=== PATIENT | female | born 1990 | race Caucasian/White ===

== ENCOUNTER → 2019-04-30 08:42 | Outpatient (BNVA) | payer SELFPAY | PROVIDERS: PCP Nurse Practitioner Women's Health; Visit Provider Nurse Practitioner Women's Health | DX: O99.013 Anemia complicating pregnancy, third trimester (principal); Z3A.32 32 weeks gestation of pregnancy; O28.3 Abnormal ultrasonic finding on antenatal screening of mother | CPT/HCPCS: 81000 ==

== ENCOUNTER → 2019-05-14 10:51 | Outpatient (BNVA) | payer MEDICAID, SELFPAY | PROVIDERS: Visit Provider Obstetrics & Gynecology | DX: Z34.90 Encounter for supervision of normal pregnancy, unspecified, unspecified trimester (principal) | CPT/HCPCS: 81003 ==

== ENCOUNTER → 2019-05-28 10:07 | Outpatient (BNVA) | payer MEDICAID, SELFPAY | PROVIDERS: Visit Provider Nurse Practitioner Women's Health | DX: O99.013 Anemia complicating pregnancy, third trimester (principal); Z3A.00 Weeks of gestation of pregnancy not specified | CPT/HCPCS: 81000; 84315; 85027; 87081 ==

== ENCOUNTER → 2019-06-05 08:20 | Outpatient (BNVA) | payer MEDICAID, SELFPAY | PROVIDERS: PCP Nurse Practitioner Women's Health; Visit Provider Obstetrics & Gynecology Female Pelvic Medicine and Reconstructive Surgery | DX: Z34.90 Encounter for supervision of normal pregnancy, unspecified, unspecified trimester (principal) | CPT/HCPCS: 81003 ==

== ENCOUNTER → 2019-06-10 12:52 | Outpatient (BNVA) | payer MEDICAID, SELFPAY | PROVIDERS: PCP Nurse Practitioner Women's Health; Visit Provider Obstetrics & Gynecology Female Pelvic Medicine and Reconstructive Surgery | DX: Z34.90 Encounter for supervision of normal pregnancy, unspecified, unspecified trimester (principal) | CPT/HCPCS: 81003 ==

== ENCOUNTER 2019-06-17 00:15 | Outpatient (CLI) | payer MEDICAID, SELFPAY ==
[2019-06-17] VITALS (15 sets, daily range): BP systolic 0–134; BP diastolic 0–78; PULSE 77–112; RESP 16–18; TEMP 36.9–37.1; BMI 29.0
--- NOTE | 2019-06-17 07:42 | PM.SDS ---
Short Stay Summary Providers Date of Admit/Discharge: 06/17/19 Attending Provider: Fermin Scales MD Primary Care Provider: KRANTHI Michaud Chief Complaint: contractions HPI History of Present Illness Stefanie Hawkins is a 29 year old female 2, para 1-0-0-1 with an LMP of 09/15/2018 and an EDC of 06/22/2019, which places her at 39-2/7 weeks gestation. She presented to L&D with complaint of contractions which had started about 1800 on 06/16. She states they had slowly increased in intensity before she came in. She denies leaking of fluid, vaginal bleeding. Reports good movement. Review of Systems Const: Denies: fever or chills ENMT: Denies: throat pain or nasal congestion Card: Denies: chest pain, palpitations or lightheadedness Resp: Denies: shortness of breath, productive cough, non-productive cough or wheezing GI: Denies: nausea, vomiting or diarrhea : Reports: urinary frequency; Denies: painful urination, genital itching, vaginal bleeding or vaginal discharge Neuro: Denies: headache, dizziness or seizure-like activity Home Meds/Allergies Home Medications and Allergies Home Medications Medication Instructions Recorded Confirmed Type PNV no.[id number] 2 tab PO DAILY 05/14/19 06/17/19 History [ Gummies] magnesium 250 mg PO BID 05/14/19 06/17/19 History pyridoxine (vitamin B6) [Vitamin 50 mg PO DAILY 05/14/19 06/17/19 History B-6] iron 325 mg PO BID 06/17/19 06/17/19 History Allergies Allergy/AdvReac Type Severity Reaction Status Date / Time Sulfa (Sulfonamide AdvReac Severe Heart stops Verified 05/14/19 09:43 Antibiotics) PFSH Acute PFSH: Medical History (Updated 06/17/19 @ 07:58 by Fermin Scales MD) Anemia affecting in third trimester Surgical History (Updated 06/17/19 @ 07:49 by Fermin Scales MD) No history of previous surgery Family History (Updated 06/17/19 @ 07:49 by Fermin Scales MD) Other Adopted Social History (Updated 06/17/19 @ 07:50 by Fermin Scales MD) Smoking and tobacco status: never smoked Alcohol intake: current Alcohol use comment: Social alcohol use, but not during Substance/Drug Use: never Female Reproductive History: : 2 Vitals/I&O/Wt Last Vital Signs Temp 98.7 F 06/17/19 07:03 Pulse 87 06/17/19 07:34 Resp 18 06/17/19 07:03 BP 130/73 06/17/19 07:34 Weight last 48 hrs Weight 191 lb Weight 191 lb Physical Exam Const: COMMON NORMALS: no apparent distress, average body habitus, alert and well nourished GENERAL APPEARANCE: well developed ORIENTATION/CONSCIOUSNESS: Yes oriented to person, Yes oriented to place and Yes oriented to time GI: COMMON NORMALS: soft to palpation, non-tender, no hepatosplenomegaly and no masses (except for nontender gravid uterus) AUSCULTATION: Yes normoactive bowel sounds PALPATION: Yes soft, Yes no hepatosplenomegaly and No hernia : EXTERNAL FEMALE EXAM: No hernia OTHER: External genitalia: Normal in appearance with no lesions seen. Anus/perineum: No perineal lesions noted. Urethral meatus: Normal in size and location with no lesions or prolapse noted. Urethra: Nontender with no palpable masses noted. Bladder: Nontender with no palpable masses noted. Vagina: No palpable masses. Brownish discharge present. Cervix: 3-4 cm dilated, 75% effaced, -2 station, soft, mid-position. Uterus: Gravid, non-tender. Adnexa: Neither ovary palpable. Neuro: SENSORIUM/ORIENTATION: Yes alert, Yes oriented to person, Yes oriented to place and Yes oriented to time Psych: COMMON NORMALS: affect normal MOOD & AFFECT: Yes euthymic mood Skin: COMMON NORMALS: no rashes or lesions noted GENERAL SKIN EXAM: no rashes or lesions noted Hospital Course Hospital Course: Patient was checked in L&D on admission by the nurse and reported to be 70% effaced and 3 cm dilated at 00:25. She was darius every 2-4 mutes. She was re-assessed at 02:25 and was reported by nurse to be 75% effaced and 4 cm dilated by a different nurse. Because of the possible change, she was kept during the night. This morning at my evaluation, she was 75% effaced and 3-4 cm dilated. She is still darius mildly every 2-4 minutes. Since she has not made any significant cervical change since admission, approx 7 hours ago, I am discharging her to home. She was instructed to come back in for evaluation if contractions became stronger, her water broke, or if developed bleeding. She was instructed to keep her next scheduled appointment in the office on SSS Data Procedures Performed: Monitoring: Category 1 tracing. Normal heart rate, moderate variability, accelerations present, no decelerations. Reactive tracing. Contractions every 2-4 minutes. Diagnoses at Discharge Discharge Diagnosis (1) False labor after 37 completed weeks of gestation: Status: Acute Discharge Plan Discharge Patient Disposition: Home, Self-Care Prescriptions: Continued iron 325 mg (65 mg iron) Tablet 325 mg PO BID RF: 0 magnesium 250 mg Tablet 250 mg PO BID RF: 0 Vitamin B-6 50 mg Capsule 50 mg PO DAILY RF: 0 Gummies 400 mcg-35 mg- 25 mg-5 mg Tablet,Chewable 2 tab PO DAILY RF: 0 Discharge Orders: Discharge Order (Routine); Ordered 06/17/19 Ordered By: Fermin Scales Referrals: Fermin Scales MD [Physician] - (Keep next scheduled appointment in the office later this week) Diet: Regular Activity: Resume usual activity Patient Instructions: OB Undelivered Discharge Activity Restrictions/Additional Instructions: Keep regular scheduled appt, follow up sooner if needed. Return for regular painful contractions 5min and less. Bright red vaginal bleeding, leaking fluid like your water is broke or baby is not moving. Attestations Medical Necessity Statement*: Patient was monitored due to frequent contractions and possible labor Time Spent in Patient Care*: less than 30 min Quality Metrics Clinical Quality Measures: During this hospital stay, did patient experience: None Coding Level of Care Code Acute Roll Up Operator for Chg Fwd Diagnoses False labor after 37 completed weeks of gestation O47.1
== END 2019-06-17 07:40 | disposition home or self-care (01) ==
LOC: OPOB 00:23 → OBGYN 07:42 → OPOB 06-18 08:44
PROVIDERS: PCP Nurse Practitioner Women's Health; Visit Provider Obstetrics & Gynecology
DX: O26.899 Other specified pregnancy related conditions, unspecified trimester (principal); Z3A.00 Weeks of gestation of pregnancy not specified; R10.9 Unspecified abdominal pain
CPT/HCPCS: 59025; 99211

== ENCOUNTER 2019-06-21 16:58 | Inpatient (IN) | payer MEDICAID, SELFPAY ==
[2019-06-21] VITALS (56 sets, daily range): BP systolic 0–172; BP diastolic 0–107; PULSE 72–125; RESP 16–18; TEMP 36.5–37.1; O2SAT 98–100; BMI 29.0
[2019-06-21 09:43] LABS: Basophils % 0.2 %; Eosinophils # 0.1 10^3/uL (0.0-0.8); Eosinophils % 0.8 %; Hematocrit 31.7 % (37.0-47.0); Hemoglobin 10.3 g/dL (11.5-15.3); Lymphocytes # 1.5 10^3/uL (0.8-4.8); Lymphocytes % 16.2 %; Mean Corpuscular HGB Conc 32.5 g/dL (30.0-36.0); Mean Corpuscular Hemoglobin 30.5 pg (28.0-34.0); Mean Corpuscular Volume 93.8 fL (81-99); Mean Platelet Volume 10.8 fL (7.4-10.4); Monocytes # 0.7 10^3/uL (0.2-0.9); Monocytes % 7.7 %; Neutrophils # 6.7 10^3/uL (1.8-7.7); Nucleated Red Blood Cells % 0 %; Platelet Count 213 10^3/cmm (130-400); Red Blood Count 3.38 10^6/uL (4.1-5.3); White Blood Count 9.2 10^3/uL (4.0-10.0)
[2019-06-21] MEDS: miSOPROStol 100 mcg tablet 25 MCG VAGINAL (10:05)
[2019-06-21] MEDS: lactated ringers 1,000 ML 999 ML IV ×2 (14:57→15:29)
--- NOTE | 2019-06-21 16:46 | PM.OBGYHP ---
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 complicated by anemia otherwise unremarkable Present Details : 2 Para: 1 Labs Rubella: Immune RPR: Negative GBS: Negative Review of Systems Const: Denies: fever, chills, body aches, change in appetite or fatigue Eyes: Denies: change in vision ENMT: Denies: painful swallowing Card: Denies: chest pain, palpitations or irregular heart rhythm Resp: Denies: shortness of breath, productive cough or non-productive cough GI: Denies: abdominal pain, nausea, vomiting, difficulty swallowing or painful bowel movements : Denies: difficulty urinating, painful urination, urinary frequency or urinary urgency Musc: Denies: back pain, extremity pain or extremity swelling Skin/Breast: Denies: rash Neuro: Denies: headache, numbness in extremities or weakness in extremities Psych: Denies: anxiety or depression Endo: Denies: cold intolerance, excessive sweating or heat intolerance [place]/Lymph: Denies: easy bruising or easy bleeding All/Imm: Denies: hives Medications/Allergies Allergies Allergy/AdvReac Type Severity Reaction Status Date / Time Sulfa (Sulfonamide AdvReac Severe Heart stops Verified 05/14/19 09:43 Antibiotics) [facility] FUR PLUCKER Medical History Anemia affecting in third trimester Surgical History No history of previous surgery Family History Other Adopted Social History Smoking and tobacco status: never smoked Alcohol intake: current Vitals/I&O/Wt Last Vital Signs Temp 98.8 F 06/21/19 14:10 Pulse 107 H 06/21/19 16:41 BP 123/58 06/21/19 16:41 Pulse Ox 100 06/21/19 16:05 Weight last 48 hrs Weight 86.827 kg Physical Exam Narrative: EXAM NARRATIVE: Alert and oriented no acute distress pleasant white female gravid appears term Skin without rashes HEENT grossly normal Neck supple nontender nodes no masses Lungs clear Heart regular sinus rhythm Abdomen gravid soft nontender vertex by Ming's estimated weight 7/2 pounds. Cervix 80% 3 cm vertex mid to posterior soft -2 pelvis clinically adequate Extremities grossly intact no significant edema Neuro shows normal gait patella DTR 05/28 Data : 06/21/19 09:15 A&P Additional A&P Information Term IUP Admit for induction of labor patient has been counseled for same we utilize misoprostol 25 mcg followed by reevaluation 4 hours with possible amniotomy versus repeat misoprostol. Anemia in , mild We will watch blood loss closely avoid hemorrhage Attestations Medical Necessity Statement*: Admit for delivery suspect Time Spent in Patient Care: 16 - 35 minutes (>than 50% of time spent in counselling and/or direct pt care on unit). Coding Level of Care Code Acute Handhole Machine Operator for Javier Cassidy
--- NOTE | 2019-06-21 16:50 | PM.DELIVERY ---
 Delivery Note: Date of delivery: June 21, 2019 Pre-delivery diagnoses: Term IUP, uncomplicated Mild anemia Post-delivery diagnoses: Same Plus nuchal cord with body cord x1 Procedure: Spontaneous vaginal delivery Repair of second-degree perineal laceration and right labial laceration Delivery note: Call from office when patient was 8 cm dilated category 1 tracing. Presented to labor and delivery upon my arrival and check she was feeling pushy and complete and complete. She then was allowed to push and had moderate variables in the second stage second stage was reasonably short productive of the spontaneous vaginal delivery of viable male . Head was delivered occiput anterior nuchal cord x1 was reduced anterior shoulder, left easily delivered to baby delivered without incident and laid on mom's abdomen. Has the body was delivering it was noted to be a posterior shoulder cord also. was laid on mom's abdomen delayed cord clamping of 1 minute. Cord was then clamped and cut mom did receive IV Pitocin with delivery the baby had good uterine contractility cord bloods were obtained placenta delivered spontaneously complete three-vessel inspection of vagina cervix showed no laceration second-degree perineal laceration repaired with 3-0 Vicryl in standard fashion 3 cm right labial laceration repaired with 3-0 Vicryl in running fashion. There were no complications. Baby in room with parents for rooming in mom will go to the floor in good condition. Op report anesthesia: Epidural Delivering Physician: Go Peace DO Estimated blood loss (mL): 250 Findings: Viable male Apgars 8 and 9 Pre-Delivery Course: Patient was admitted at 2 to 3 cm had measle possible 25 mcg placed 4 hours later she was 4 cm underwent amniotomy progressed nicely into full labor with no further augmentation required category 1 tracing. Short second stage Delivery: Delivery note: Call from office when patient was 8 cm dilated category 1 tracing. Presented to labor and delivery upon my arrival and check she was feeling pushy and complete and complete. She then was allowed to push and had moderate variables in the second stage second stage was reasonably short productive of the spontaneous vaginal delivery of viable male infant. Head was delivered occiput anterior nuchal cord x1 was reduced anterior shoulder, left easily delivered to baby delivered without incident and laid on mom's abdomen. Has the body was delivering it was noted to be a posterior shoulder cord also. Infant was laid on mom's abdomen delayed cord clamping of 1 minute. Cord was then clamped and cut mom did receive IV Pitocin with delivery the baby had good uterine contractility cord bloods were obtained placenta delivered spontaneously complete three-vessel inspection of vagina cervix showed no laceration second-degree perineal laceration repaired with 3-0 Vicryl in standard fashion 3 cm right labial laceration repaired with 3-0 Vicryl in running fashion. There were no complications. Baby in room with parents for rooming in mom will go to the floor in good condition Post-Delivery Status: good condition A&P Additional A&P Information Term IUP delivered Coding Level of Care Code Acute Insurance Administrative Assistant for Chg Fwd Time Spent (min) 35
--- NOTE | 2019-06-21 17:34 | PC.NURSE ---
PT HAS EPIDURAL AND IS ALITTLE MORE COMFORTABLE BUT STILL FEELING PUSHY.
[2019-06-21] MEDS: benzocaine-menthol 78 gm Canister 1 SPRAY TOPICAL (20:32)
[2019-06-21] MEDS: lanolin oint 7 gm 1 APPLIC TOPICAL (20:34)
[2019-06-22 02:00] VITALS: BP 112/76; PULSE 78; RESP 16; TEMP 36.7
[2019-06-22 05:25] LABS: Hematocrit 31.2 % (37.0-47.0); Hemoglobin 9.6 g/dL (11.5-15.3); Mean Corpuscular HGB Conc 30.8 g/dL (30.0-36.0); Mean Corpuscular Volume 97.5 fL (81-99); Mean Platelet Volume 10.8 fL (7.4-10.4); Platelet Count 175 10^3/cmm (130-400); Red Cell Distribution Width 15.1 % (12.1-15.1); White Blood Count 11.7 10^3/uL (4.0-10.0)
--- NOTE | 2019-06-22 06:36 | P.DS_ITS ---
Discharge Providers SOLUTIONS EXECUTIVE SECURITY Date of Admission: 06/21/19 16:58 Date of Discharge: 06/22/19 Attending Provider at Admission: Go Peace DO Attending Provider at Discharge: Go Peace DO Primary Care Provider: KRANTHI Michaud Reason for Visit Reason for Visit: Reason For Visit: Induction Hospital Course Hospital Course: Patient admitted at 39 weeks for elective induction of labor had favorable cervix. Underwent misoprostol 25 mcg per vagina with good uterine contractions category 1 tracing amniotomy performed at 4 cm patient progressed very nicely through labor had spontaneous vaginal delivery of viable infant. course benign up and about breast-feeding well baby doing well no complaints discharged home day 1. Discharge Summary: See above: Patient did well was discharged home with plan follow-up in 2 weeks spouse is to get a vasectomy. Information Peripartum Data: Delivery Method: Vaginal Physical Exam Narrative: EXAM NARRATIVE: Alert and oriented no acute distress HEENT grossly normal Abdomen soft nontender uterus U- 2 firm Vagina minimal bleeding Perineum well approximated Extremities grossly intact no calf tenderness Discharge Data Data Completed and Pending: Pending at discharge Category Date Time Status Antibody Identifi cation Stat Lab 06/21/19 17:54 Ordered Complete Crossmat ch Routine Lab 06/21/19 09:15 Results Rho D Immune Glob ulin Routine Lab 06/21/19 09:15 Results Type and Screen R outine Lab 06/21/19 09:15 Results Labs from last 24 hours 06/22/19 06/21/19 05:20 09:15 WBC 11.7 H 9.2 RBC 3.20 L 3.38 L Hgb 9.6 L 10.3 L Hct 31.2 L 31.7 L MCV 97.5 93.8 MCH 30.0 30.5 MCHC 30.8 D 32.5 RDW 15.1 15.0 Plt Count 175 213 MPV 10.8 H 10.8 H Neut % (Auto) 73.0 Lymph % (Auto) 16.2 [place] % (Auto) 7.7 Eos % (Auto) 0.8 Baso % (Auto) 0.2 Neut # (Auto) 6.7 Lymph # (Auto) 1.5 [place] # (Auto) 0.7 Eos # (Auto) 0.1 Baso # (Auto) 0.0 Nucleated RBC % (a uto) 0 Nucleated RBCs # 0.0 Vitals: Last Vital Signs Temp 98.0 F 06/22/19 02:00 Pulse 78 06/22/19 02:00 Resp 16 06/22/19 02:00 BP 112/76 06/22/19 02:00 Pulse Ox 100 06/21/19 16:05 Discharge Plan Discharge Patient Disposition: Home, Self-Care Condition: Stable Prescriptions: New acetaminophen 325 mg Tablet 650 mg PO Q6H PRN (Reason: Mild pain or temp > 100.4) 30 Days Qty: 90 RF: 0 Continued ferrous sulfate [iron] 325 mg (65 mg iron) Tablet 325 mg PO BID RF: 0 magnesium 250 mg Tablet 250 mg PO BID RF: 0 Vitamin B-6 50 mg Capsule 50 mg PO DAILY RF: 0 Gummies 400 mcg-35 mg- 25 mg-5 mg Tablet,Chewable 2 tab PO DAILY RF: 0 Discharge Orders: Discharge Order (Routine); Ordered 06/22/19 Ordered By: Go Peace Referrals: Go Peace DO [Physician] - 2 weeks Discharge Diet: Regular Discharge Activity: Increase activity as tolerated Discharge Attestations SOLUTIONS EXECUTIVE SECURITY Time Spent in Discharge Care*: less than 30 min Coding Level of Care Code Acute Metal Melter for Chg Ange
--- NOTE | 2019-06-22 06:46 | PM.OBGYPN ---
ASSOCIATE PROFESSOR OF THEOLOGY Subjective Subjective: Interval history: day 1 doing well ready to go home Labor: Station: +2 Amniotic Membrane Status: Ruptured Monitor Mode: External Contraction Pattern: Regular Status: Category l Vitals/I&O/Wt Last Vital Signs Temp 98.0 F 06/22/19 02:00 Pulse 78 06/22/19 02:00 Resp 16 06/22/19 02:00 BP 112/76 06/22/19 02:00 Pulse Ox 100 06/21/19 16:05 06/21/19 06/21/19 06/22/19 14:59 22:59 06:59 Intake Total 1200 / 1200 Output Total 900 / 900 Balance 300 / 300 Weight last 48 hrs Weight 86.827 kg Physical Exam Narrative: EXAM NARRATIVE: Alert and oriented no acute distress sitting up in bed HEENT normal Abdomen soft nontender uterus U- 2 firm tender. EXT/BUS perineum well approximated Vagina no significant bleeding Extremities grossly intact no swelling no calf tenderness Data : 06/22/19 05:20 A&P Additional A&P Information Term IUP delivered Doing well discharge home Anemia Anemia stable continue FeSO4 Attestations Medical Necessity Statement*: care Time Spent in Patient Care: 16 - 35 minutes (>than 50% of time spent in counselling and/or direct pt care on unit). Coding Level of Care Code Acute Inspector Air Carrier for Javier Cassidy
[2019-06-22 07:09] VITALS: BP 118/73; PULSE 90; RESP 18; TEMP 36.6
[2019-06-22] MEDS: ferrous sulfate EC 325 mg Tablet PO (08:50)
[2019-06-22] MEDS: docusate sodium 100 mg Capsule PO (08:50)
[2019-06-22 10:38] VITALS: BP 101/63; PULSE 92; RESP 18; TEMP 36.8
[2019-06-22 16:45] VITALS: BP 116/71; PULSE 71; RESP 16; TEMP 36.8
== END 2019-06-22 17:45 | disposition home or self-care (01) | DRG 807 ==
LOC: OBGYN 06-22 06:40 → OPOB 06-24 07:55
PROVIDERS: Admitting Provider Obstetrics & Gynecology Female Pelvic Medicine and Reconstructive Surgery; PCP Nurse Practitioner Women's Health; Visit Provider Obstetrics & Gynecology Female Pelvic Medicine and Reconstructive Surgery
DX: O99.02 Anemia complicating childbirth (principal); Z37.0 Single live birth; D64.9 Anemia, unspecified; Z3A.39 39 weeks gestation of pregnancy; O69.81X0 Labor and delivery complicated by cord around neck, without compression, not applicable or unspecified; O70.1 Second degree perineal laceration during delivery
CPT/HCPCS: 12345; 36415; 59025; 59409; 85025; 85027; 86850; 86900; 99211; J2795

== ENCOUNTER → 2019-08-05 11:38 | Outpatient (BNVA) | payer MEDICAID, SELFPAY | PROVIDERS: PCP Nurse Practitioner Women's Health; Visit Provider Obstetrics & Gynecology | DX: Z30.013 Encounter for initial prescription of injectable contraceptive (principal); Z30.42 Encounter for surveillance of injectable contraceptive; Z39.2 Encounter for routine postpartum follow-up | CPT/HCPCS: 81025 ==

== ENCOUNTER → 2020-06-12 09:36 | Outpatient (BNVA) | payer BC, MEDICAID, SELFPAY | PROVIDERS: PCP Nurse Practitioner Women's Health; Visit Provider Obstetrics & Gynecology | DX: Z32.00 Encounter for pregnancy test, result unknown (principal) | CPT/HCPCS: 81025 ==

== ENCOUNTER → 2020-07-02 09:02 | Outpatient (BNVA) | payer BC, MEDICAID, SELFPAY | PROVIDERS: PCP Nurse Practitioner Women's Health; Visit Provider Nurse Practitioner Women's Health | DX: O36.80X0 Pregnancy with inconclusive fetal viability, not applicable or unspecified (principal); Z3A.00 Weeks of gestation of pregnancy not specified | CPT/HCPCS: 81000 ==

== ENCOUNTER → 2020-07-15 08:54 | Outpatient (BNVA) | payer BC, MEDICAID, SELFPAY | PROVIDERS: PCP Nurse Practitioner Women's Health; Visit Provider Obstetrics & Gynecology | DX: Z34.90 Encounter for supervision of normal pregnancy, unspecified, unspecified trimester (principal); Z34.80 Encounter for supervision of other normal pregnancy, unspecified trimester; Z30.2 Encounter for sterilization | CPT/HCPCS: 81000 ==

== ENCOUNTER → 2020-07-20 13:15 | Outpatient (BNVA) | payer BC, MEDICAID, SELFPAY | PROVIDERS: PCP Nurse Practitioner Women's Health; Visit Provider Obstetrics & Gynecology | DX: Z34.80 Encounter for supervision of other normal pregnancy, unspecified trimester (principal) | CPT/HCPCS: 85027; 86592; 86762; 86803; 86850; 86900; 87340; 87806 ==

== ENCOUNTER → 2020-08-05 10:10 | Outpatient (BNVA) | payer BC, MEDICAID, SELFPAY | PROVIDERS: PCP Nurse Practitioner Women's Health; Visit Provider Obstetrics & Gynecology | DX: Z34.80 Encounter for supervision of other normal pregnancy, unspecified trimester (principal); Z30.2 Encounter for sterilization | CPT/HCPCS: 80307; 81000; 87086; 87491; 87591 ==

== ENCOUNTER → 2020-09-03 08:17 | Outpatient (BNVA) | payer BC, MEDICAID, SELFPAY | PROVIDERS: PCP Nurse Practitioner Women's Health; Visit Provider Nurse Practitioner Women's Health | DX: Z34.80 Encounter for supervision of other normal pregnancy, unspecified trimester (principal); R31.9 Hematuria, unspecified; Z30.2 Encounter for sterilization | CPT/HCPCS: 81000; 87086 ==

== ENCOUNTER → 2020-09-30 12:35 | Outpatient (BNVA) | payer BC, MEDICAID, SELFPAY | PROVIDERS: PCP Nurse Practitioner Women's Health; Visit Provider Obstetrics & Gynecology | DX: Z34.80 Encounter for supervision of other normal pregnancy, unspecified trimester (principal) | CPT/HCPCS: 81000 ==

== ENCOUNTER → 2020-10-27 10:46 | Outpatient (BNVA) | payer BC, MEDICAID, SELFPAY | PROVIDERS: PCP Nurse Practitioner Women's Health; Visit Provider Nurse Practitioner Women's Health | DX: Z34.80 Encounter for supervision of other normal pregnancy, unspecified trimester (principal); Z30.2 Encounter for sterilization | CPT/HCPCS: 81000 ==

== ENCOUNTER → 2020-11-26 14:23 | Outpatient (BNVA) | payer BC, MEDICAID, SELFPAY | PROVIDERS: PCP Nurse Practitioner Women's Health; Visit Provider Obstetrics & Gynecology | DX: Z30.2 Encounter for sterilization (principal); Z34.80 Encounter for supervision of other normal pregnancy, unspecified trimester | CPT/HCPCS: 81000; 82950; 85025 ==

== ENCOUNTER → 2020-12-09 12:26 | Outpatient (BNVA) | payer BC, MEDICAID, SELFPAY | PROVIDERS: PCP Nurse Practitioner Women's Health; Visit Provider Obstetrics & Gynecology | DX: Z34.80 Encounter for supervision of other normal pregnancy, unspecified trimester (principal) | CPT/HCPCS: 81000 ==

== ENCOUNTER → 2020-12-23 10:41 | Outpatient (BNVA) | payer BC, MEDICAID, SELFPAY | PROVIDERS: PCP Nurse Practitioner Women's Health; Visit Provider Obstetrics & Gynecology | DX: Z34.80 Encounter for supervision of other normal pregnancy, unspecified trimester (principal) | CPT/HCPCS: 81000 ==

== ENCOUNTER → 2021-01-06 09:57 | Outpatient (BNVA) | payer BC, MEDICAID, SELFPAY | PROVIDERS: PCP Nurse Practitioner Women's Health; Visit Provider Nurse Practitioner Women's Health | DX: O99.013 Anemia complicating pregnancy, third trimester (principal); Z30.2 Encounter for sterilization; Z3A.00 Weeks of gestation of pregnancy not specified | CPT/HCPCS: 81000 ==

== ENCOUNTER → 2021-01-20 11:00 | Outpatient (BNVA) | payer BC, MEDICAID, SELFPAY | PROVIDERS: PCP Nurse Practitioner Women's Health; Visit Provider Obstetrics & Gynecology | DX: Z34.80 Encounter for supervision of other normal pregnancy, unspecified trimester (principal); Z34.90 Encounter for supervision of normal pregnancy, unspecified, unspecified trimester | CPT/HCPCS: 81000; 87081 ==

== ENCOUNTER → 2021-01-27 10:26 | Outpatient (BNVA) | payer BC, MEDICAID, SELFPAY | PROVIDERS: PCP Nurse Practitioner Women's Health; Visit Provider Obstetrics & Gynecology | DX: Z34.80 Encounter for supervision of other normal pregnancy, unspecified trimester (principal) | CPT/HCPCS: 81000 ==

== ENCOUNTER 2021-01-28 05:13 | Inpatient (IN) | payer BC, MEDICAID, SELFPAY ==
[2021-01-28] VITALS (113 sets, daily range): BP systolic 80–204; BP diastolic 47–128; PULSE 69–138; RESP 14–22; TEMP 35.4–36.8; O2SAT 92–100; BMI 25.5
[2021-01-28 05:27] LABS: Basophils % 0.3 %; Eosinophils # 0.2 10^3/uL (0.0-0.8); Eosinophils % 1.8 %; Hematocrit 33.2 % (37.0-47.0); Hemoglobin 10.6 g/dL (11.5-15.3); Mean Corpuscular HGB Conc 31.9 g/dL (30.0-36.0); Mean Corpuscular Hemoglobin 29.8 pg (28.0-34.0); Mean Corpuscular Volume 93.3 fl (81-99); Mean Platelet Volume 10.6 fL (7.4-10.4); Monocytes # 0.8 10^3/uL (0.2-0.9); Monocytes % 6.3 %; Neutrophils # 8.99 10^3/uL (1.8-7.7); Neutrophils % 72.2 %; Nucleated Red Blood Cells % 0 %; Platelet Count 224 10^3/cmm (130-400); Red Blood Count 3.56 10^6/uL (4.1-5.3); White Blood Count 12.5 10^3/uL (4.0-10.0)
[2021-01-28] MEDS: lactated ringers 1,000 ML 999 ML IV (05:41)
--- NOTE | 2021-01-28 06:30 | PC.NURSE ---
Called and spoke with Jennifer from surgery, informed that patient was needing an epidural placed and requested an anesthesia provider to bedside. Jennifer states that she will give Dr. Lopez the message once he arrives to the unit so that someone can come to the unit to place epidural.
[2021-01-28] MEDS: dextrose 5%-lactated ringers 1,000 ML 125 ML IV ×2 (06:46→13:04)
--- NOTE | 2021-01-28 07:30 | PM.OPHPUD ---
Labor & Delivery H&P Update Date of Procedure: January 28, 2021 Date H&P Performed: 01/27/21 H&P update information: I have reviewed H&P completed within last 30 days, I have examined patient prior to procedure and Changes to prior documentation as noted here (cervix:5cm/90/-3/vx/IM) Admission Diagnosis: Preop diagnosis: Term , EDC 06/20/19
--- NOTE | 2021-01-28 07:54 | P.ANESASSM_ITS ---
Pre-Anesthetic Assessment Pre-Anesthetic Assessment: Height/Weight: Height 1.73 m Weight 76.204 kg Temp Pulse Resp BP Pulse Ox 98.2 F 88 16 109/64 100 01/28/21 05:24 01/28/21 07:49 01/28/21 07:05 01/28/21 07:49 01/28/21 07:32 Preop Diagnosis: Term , EDC 06/20/19 Was Beta Brenda taken within 24 hours: N/A Was Clonidine taken within 24 hours: N/A Social: Social History: No alcohol and No tobacco Exam: Pre-Anes Outpt Exam: alert, oriented x 3, clear to auscultation bilaterally and regular rate & rhythm Airway: Submandibular: WNL Cervical ROM: WNL MP: 2 Dentition: Full CV/HEM: CV/HEM: Anemia Anesthetic Plan: ASA status: 2 Anesthesia: Regional (specify below) (Labor Epidural) Risk of > 500 ml blood loss (7ml/kg in children): No Meds/Allergies Current Medications: Current Medications Generic Name Dose Route Start Last Admin Trade Name Freq PRN Reason Stop Dose Admin Dextrose/Lactated Ringer's 1,000 mls @ 125 m ls/hr 01/28/21 05:07 01/28/21 06:46 Dextrose 5%-Lact ated Ringers IV 125 mls/hr .Q8H PRN Administration labor Ropivacaine 200 mg in 100 mls @ 13 mls/hr 01/28/21 05:08 01/28/21 07:06 Naropin Premix EPIDURAL 13 mls/hr .Q7H42M PRN Administration ANESTHESIA Lactated Ringer's 1,000 mls @ 999 m ls/hr 01/28/21 05:08 01/28/21 06:42 Lactated Ringers IV Infused .Q1H1M PRN Infusion See label comment s PFSH Anesthesia PFSH: Medical History No pertinent past medical history Denies diabetes, asthma, hypertension, seizures, DVT/PE PCP: none Surgical History No history of previous surgery Family History Unknown Adopted Patient was adopted and does not know her biological family history Female Reproductive History: : 3 Data Anesthesia CBC & Chem 7: 01/28/21 05:20 Other Labs: Laboratory Results - last 48 hr 01/28/21 05:20 WBC 12.5 H RBC 3.56 L Hgb 10.6 L Hct 33.2 L MCV 93.3 MCH 29.8 MCHC 31.9 RDW 14.0 Plt Count 224 MPV 10.6 H Neut % (Auto) 72.2 Lymph % (Auto) 16.0 [place] % (Auto) 6.3 Eos % (Auto) 1.8 Baso % (Auto) 0.3 Neut # (Auto) 8.99 H Lymph # (Auto) 2.0 [place] # (Auto) 0.8 Eos # (Auto) 0.2 Baso # (Auto) 0.0 Nucleated RBC % (auto) 0 Nucleated RBCs # 0.0 Cardiac Studies: No Data to Display
[2021-01-28] MEDS: ondansetron 2 mg/ML SDV 2 mL 4 MG IVP (08:49)
--- NOTE | 2021-01-28 10:03 | P.PN_ITS ---
Subjective Subjective: Interval history: Ross is a 30 year old with an LMP of 05/07/2020 and an EDC of 02/11/2021 by dates and consistent with 9 week ultrasound, placing her at 38+0 weeks. Refers she is now feeling comfortable with the epidural Vitals/I&O/Wt Last Vital Signs Temp 97.0 F L 01/28/21 09:58 Pulse 82 01/28/21 09:46 Resp 14 01/28/21 08:46 BP 91/51 01/28/21 09:46 Pulse Ox 100 01/28/21 08:57 01/27/21 01/28/21 01/28/21 22:59 06:59 14:59 Intake Total 1000 / 1000 Balance 1000 / 1000 Weight last 48 hrs Weight 76.204 kg Physical Exam Narrative: EXAM NARRATIVE: GA: Alert and oriented ?3. Lungs: Clear to auscultation bilaterally. Heart: Regular rhythm and rate. Abdomen: Gravid, full the height equals dates, nontender. LOZENGE DOUGH MIXER: SVE; dilation: 7-8 cm, effacement: 90%, station: -3, presentation: Vx, membranes: AROM scant. Extremities: no edema, no cyanosis, no calves pain. heart tracing: Basal rate: 140's bpm, Variability: moderate, Accelerations: present, Decelerations: absent, Contraction: q3min. Urinary Catheter Management^: Biggs Latex: Cath Placed During This Visit: yes Urinary Catheter Date of Insertion: 01/28/21 Urinary Catheter Time of Insertion: 07:42 Data : 01/28/21 05:20 A&P Assessment and plan (1) Active labor at term: Ross is a 30 year old with an LMP of 05/07/2020 and an EDC of 02/11/2021 by dates and consistent with 9 week ultrasound, placing her at 38+0 weeks. Has been receiving care from [facility]. She has been experiencing painful uterine contractions for the past 3 hours. The contractions are occurring at 3 minute intervals with approximately 30 second duration. She continues to feel movement between the contractions. She denies vaginal bleeding or rupture of membranes bafore admission. Received appropriate care. Daily vitamins since start of renatal care. labs have all been normal, including negative for HIV. She was found to negative for Group B Strep from screening at 36 weeks. care had been complicated by anemia affecting . She has gained approximately 19 lbs throughout the . She denies a history of HTN during . Glucose tolerance screening for gestational diabetes was negative. heart tracing category 1. Scalp stimulation positive. Adequate progression of labor. AROM scant fluid noted. Anticipate vaginal delivery. Plan: Start with oxytocin augmentation with low dose protocol. Continue with monitoring. Status: Acute Attestations Medical Necessity Statement*: In my professional opinion per admitting diagnosis Coding Level of Care Code Acute It Applications Manager for Javier Cassidy Diagnoses Active labor at term
[2021-01-28] MEDS: oxytocin 30 UNIT/500 ML BAG IV (10:19)
--- NOTE | 2021-01-28 13:03 | PM.DELIVERY ---
Delivery Note: Date of delivery: January 28, 2021 Pre-delivery diagnoses: Term Anemia affecting Desire permanent sterilization Post-delivery diagnoses: Term delivered Op report anesthesia: Epidural Estimated blood loss (mL): 300 Findings: Term female infant with Apgars 8/9 with a birthweight of Pre-Delivery Course: Ross is a 30 year old with an LMP of 05/07/2020 and an EDC of 02/11/2021 by dates and consistent with 9 week ultrasound, placing her at 38+0 weeks. Has been receiving care from [facility]. She has been experiencing painful uterine contractions for the past 3 hours. The contractions are occurring at 3 minute intervals with approximately 30 second duration. She continues to feel movement between the contractions. She denies vaginal bleeding or rupture of membranes bafore admission. Received appropriate care. Daily vitamins since start of care. labs have all been normal, including negative for HIV. She was found to negative for Group B Strep from screening at 36 weeks. care had been complicated by anemia affecting . She has gained approximately 19 lbs throughout the . She denies a history of HTN during . Glucose tolerance screening for gestational diabetes was negative. Delivery: The patient was noted to be complete and pushing, so was placed in the dorsal lithotomy position, prepped and draped in the usual sterile fashion for a vaginal delivery. Pt. Noted to have epidural anesthesia. The patient delivered a viable bilateral gestational age at 38 weeks female infant fetus weighing 3415 g with scores of 8 and 9 at one and five minutes, respectively. The vertex was delivered spontaneously over an intact perineum. The patient was asked to push and the head delivered spontaneously in the CHRIS position, over an intact perineum. A nuchal cord was checked and 1 noted, and released through around head as necessary. The anterior shoulder delivered easily and the posterior shoulder followed. The remainder of the was easily delivered and the oropharynx and nasopharynx was bulb suctioned. The infant was noted to have spontaneous cry and spontaneous movement of all four extremities. The cord was clamped x 2 and cut and noted to have 2 arteries and one vein. The infant was passed to the mother's abdomen where nursing personnel were in attendance. The placenta delivered intact spontaneously and the uterus was explored. 20 units of Pitocin was placed in the IV bag to firm the uterus. Examination of the cervix and vaginal vault did not reveal any lacerations. A vaginal pack was then placed. Examination of the perineum showed no lacerations. The vaginal pack was then removed. The patient tolerated this procedure well, and recovered in L&D with her infant in their LDR. All sponge and needle counts were correct. Post-Delivery Status: Good and stable A&P Assessment and plan (1) Term delivered: Status: Acute Coding Level of Care Code Acute Research Test Engine Evaluator for Chg Fwd Diagnoses Term delivered O80
--- NOTE | 2021-01-28 13:09 | P.PN_ITS ---
Subjective Subjective: Interval history: Ms. Hawkins is a 30 year old status post continuous vaginal delivery desires permanent sterilization Vitals/I&O/Wt Last Vital Signs Temp 96.1 F L 01/28/21 12:05 Pulse 97 01/28/21 13:02 Resp 14 01/28/21 12:00 BP 116/55 01/28/21 13:02 Pulse Ox 100 01/28/21 08:57 01/27/21 01/28/21 01/28/21 22:59 06:59 14:59 Intake Total 1000 / 1000 950 / 950 Balance 1000 / 1000 950 / 950 Weight last 48 hrs Weight 76.204 kg Physical Exam Narrative: EXAM NARRATIVE: GA; alert and oriented x 3 HEENT: normal Breasts: engorged Nipples - skin intact Lungs; clear to auscultation Heart: regular rhythm, no murmurs. Abd: Appropriately tender. BS+. Uterine fundus below umbilicus. No Fundal Tenderness. Perineum: normal lochia. Extremities: no edema, no cyanosis, no tenderness. Urinary Catheter Management^: Biggs Latex: Cath Placed During This Visit: yes Urinary Catheter Date of Insertion: 01/28/21 Urinary Catheter Time of Insertion: 07:42 Data : 01/28/21 05:20 A&P Assessment and plan (1) Term delivered: 30-year-old female G 3 P 3 status post spontaneous vaginal delivery desire permanent sterilization requesting tubal ligation. The patient was counseled regarding all methods of contraception, risk and complications. She elected to continue to proceed with the tubal ligation as planned. partial salpingectomy is associated with lower failure rates than interval tubal occlusions done via laparoscopy. She was counseled regarding the procedure, alternative, risks and complications. Complications of tubal sterilization include problems like but not limited to anesthesia, hemorrhage, organ damage, and mortality. Although pregnancies after a sterilization procedure are rare, there is substantial risk that any post-sterilization could be ectopic. The overall failure rate is on the order of 0.5% in the first year but a study showed that sterilization failures vary by both age at sterilization and the method used. The study also found that the risks of accumulate over time, and that for women aged 18 to 27 years, failure rates can be as high as 5% with bipolar coagulation and the spring clip. The patient was informed of the risks and benefits of the procedure. Risks included but were not limited to bleeding, infection, and injury to internal organs. The patient was counseled on the risk of sterilization failure. The patient was informed that in the event a occurs the risk of ectopic is increased. The patient was counseled that bilateral tubal ligation is intended to be permanent and nonreversible. She was also counseled that there are nonpermanent forms of control available to her. The patient expressed understanding of the risks involved, all questions were answered, and the patient consented to the procedure and signed informed consent. Status: Acute Attestations Medical Necessity Statement*: In my professional opinion per admitting diagnosis Coding Level of Care Code Acute Coat Room Attendant for g Fwd Diagnoses Term delivered O80
--- NOTE | 2021-01-28 14:26 | P.OP_ITS ---
Operative Report Date of procedure: January 28, 2021 Pre-op Diagnosis: Term delivered. Desire permanent sterilization Post-op diagnosis: same Post-op Findings: Enlarged uterus Procedure Done: bilateral partial salpingectomy Specimens removed/disposition: Left and right fallopian tube segment Surgeon: Narayan Whitfield MD Anesthesia: Epidural Estimated blood loss (mL): 5 IV fluids (mL): 300 Complications: None Condition: stable Disposition: PACU Brief History: Mrs. Hawkins 30-year-old female G3, P3 is status post continuous vaginal delivery desires permanent sterilization Procedure: After assuring informed consent. The patient was informed of the risks and benefits of the procedure. Risks included but were not limited to bleeding, infection, and injury to internal organs. The patient was counseled on the risk of sterilization failure. The patient was informed that in the event a occurs the risk of ectopic is increased. The patient was counseled that bilateral tubal ligation is intended to be permanent and nonreversible. She was also counseled that there are nonpermanent forms of control available to her. The patient expressed understanding of the risks involved, all questions were answered, and the patient consented to the procedure. The patient was taken to the operating room and general anesthesia administered. Time-out procedure was performed. A small, transverse, infraumbilical skin incision was made with a scalpel, and the incision was carried down through the underlying fascia until the peritoneum was identified and entered. The left fallopian tube was identified, brought into the incision and grasped with a Lansing clamp. The tube was then followed out to the fimbria. An avascular midsection of the fallopian tube was grasped with a Vero clamp and brought into a knuckle. A [employer] Fine Fusion device was used and midsection tube was graspped, sealed and transected. The specimen was sent to pathology. Excellent hemostasis was noted, and the tube was returned to the abdomen. The same procedure was performed on the opposite fallopian tube. The fascia was then closed with O-Vicryl in a single layer. The skin was closed with 3-O Monocryl in a subcuticular fashion and Dermobond was applied. The patient tolerated the procedure well. Needle and sponge counts were correct times 3.
--- NOTE | 2021-01-28 15:22 | ANE.PACU2 ---
Inpatient post-anesthesia follow up: Airway intact: Yes Vital signs: Temperature 96.1 F Pulse Rate 103 Respiratory Rate 17 Blood Pressure 204/128 Pulse Oximetry 100 Oxygen Delivery Me thod Room Air Oxygen Flow Rate Fraction of Inspir ed Oxygen Hydration adequate: Yes Nausea and vomiting: No Pain level: 2 Mental status: Baseline
[2021-01-28] MEDS: lanolin oint 7 gm 1 APPLIC TOPICAL (15:38)
[2021-01-28] MEDS: ketorolac 30 mg/mL INJ IVP (15:38)
[2021-01-28] MEDS: benzocaine-menthol 78 gm Canister 1 SPRAY TOPICAL (15:39)
[2021-01-28] MEDS: HYDROcodone-acetaminophen 5-325 mg Tablet PO (15:48)
--- NOTE | 2021-01-28 18:54 | PC.NURSE ---
Epidural Patient epidural left in place when transported to OR by Raúl. Patient's epidural removed once returned from OR.
[2021-01-28] MEDS: docusate sodium 100 mg Capsule PO (19:01)
[2021-01-28] MEDS: ibuprofen 800 mg tablet PO (21:28)
[2021-01-29 03:06] VITALS: TEMP 36.2
[2021-01-29 03:07] VITALS: BP 119/59; PULSE 88
[2021-01-29 03:24] LABS: Hematocrit 28.2 % (37.0-47.0); Hemoglobin 9.1 g/dL (11.5-15.3); Mean Corpuscular HGB Conc 32.3 g/dL (30.0-36.0); Mean Corpuscular Hemoglobin 30.4 pg (28.0-34.0); Mean Corpuscular Volume 94.3 fl (81-99); Mean Platelet Volume 11.1 fL (7.4-10.4); Platelet Count 186 10^3/cmm (130-400); Red Blood Count 2.99 10^6/uL (4.1-5.3); White Blood Count 12.1 10^3/uL (4.0-10.0)
[2021-01-29 06:47] VITALS: BP 118/65; PULSE 71; TEMP 36.2
[2021-01-29] MEDS: ibuprofen 800 mg tablet PO ×2 (09:50→14:14)
[2021-01-29] MEDS: docusate sodium 100 mg Capsule PO (09:51)
[2021-01-29] MEDS: prenatal vitamin Capsule 1 CAP PO (09:51)
[2021-01-29] MEDS: ferrous sulfate EC 325 mg Tablet PO (09:52)
[2021-01-29 11:06] VITALS: BP 118/60; PULSE 82
--- NOTE | 2021-01-29 12:36 | PM.OBGYDC ---
Discharge Providers JOB CAPTAIN Date of Admission: 01/28/21 05:13 Date of Discharge: 01/29/21 Attending Provider at Admission: Narayan Whitfield MD Attending Provider at Discharge: Narayan Whitfield MD Primary Care Provider: KRANTHI Michaud Diagnoses at Discharge Discharge Diagnosis (1) Term delivered: Status: Acute (2) Status post bilateral salpingectomy: Status: Acute Reason for Visit Reason for Visit: CONTRACTIONS Hospital Course Hospital Course Mrs. Hawkins 30-year-old female G3, P3 status post vaginal delivery and bilateral salpingectomy postoperative day 1. Mrs. Hawkins came to L&D at 38+0 weeks in active labor. Has been receiving care from [facility]. When she came to L&D she has been experiencing painful uterine contractions for the past 3 hours. The contractions are occurring at 3 minute intervals with approximately 30 second duration. She continues to feel movement between the contractions. She denies vaginal bleeding or rupture of membranes bafore admission. Received appropriate care. Daily vitamins since start of care. labs have all been normal, including negative for HIV. She was found to negative for Group B Strep from screening at 36 weeks. care had been complicated by anemia affecting . She has gained approximately 19 lbs throughout the . She denies a history of HTN during . Glucose tolerance screening for gestational diabetes was negative. She progressed to have an uncomplicated spontaneous vaginal delivery. She had signed a consent previously during care for permanent sterilization after delivery. A bilateral tubal ligation procedure was performed without complication also. Overnight observation has been uneventful pain well under control. She is afebrile and hemodynamically stable. Tolerating diet well. Ambulating without difficulty, and Breast-feeding. Information Peripartum Data: Infant Delivery Method: Vaginal Physical Exam Narrative: EXAM NARRATIVE: GA; alert and oriented x 3 HEENT: normal Breasts: engorged Nipples - skin intact Lungs; clear to auscultation Heart: regular rhythm, no murmurs. Abd: Appropriately tender. BS+. Uterine fundus below umbilicus. No Fundal Tenderness. incision clean and dry, no redness, pain or edema. Perineum: normal lochia. Extremities: no edema, no cyanosis, no tenderness. Urinary Catheter Management^: Biggs Latex: Cath Placed During This Visit: yes, but has since been removed by the nurse Reason for Continuing Indwelling Catheter: Decision to DC Catheter Urinary Catheter Date of Insertion: 01/28/21 Urinary Catheter Time of Insertion: 07:42 Date Urinary Catheter Removed: 01/28/21 Time Urinary Catheter Discontinued: 12:36 Discharge Data Data Completed and Pending: Pending at discharge Category Date Time Status Hemagram Timed Lab 01/29/21 05:00 Uncollected Pathology: Surgic al [PTH] Routine Pth 01/28/21 14:29 Received Labs from last 24 hours 01/29/21 03:17 WBC 12.1 H RBC 2.99 L Hgb 9.1 L Hct 28.2 L MCV 94.3 MCH 30.4 MCHC 32.3 RDW 14.0 Plt Count 186 MPV 11.1 H Vitals: Last Vital Signs Temp 97.2 F L 01/29/21 06:47 Pulse 82 01/29/21 11:06 Resp 16 01/28/21 15:23 BP 118/60 01/29/21 11:06 Pulse Ox 98 01/28/21 16:29 Discharge Plan Discharge Patient Disposition: Home Condition: Stable Prescriptions: New ibuprofen 800 mg tablet 800 mg PO TID PRN (Reason: pain) Qty: 60 RF: 0 hydrocodone-acetaminophen 5-325 mg tablet 1 tab PO Q4H PRN (Reason: pain) Qty: 10 RF: 0 ferrous sulfate [Iron (ferrous sulfate)] 325 mg (65 mg iron) tablet 325 mg PO BID Qty: 60 RF: 0 docusate sodium [Colace] 100 mg capsule 100 mg PO BID Qty: 60 RF: 0 acetaminophen 325 mg capsule 325 mg PO Q4H PRN (Reason: fever or pain) Qty: 60 RF: 0 Continued prenat.vits,soo,srt-nrsj-yfcht Tablet 1 tab PO DAILY RF: 0 ferrous sulfate 325 mg (65 mg iron) tablet,delayed release (DR/EC) 325 mg PO BID Qty: 90 RF: 2 Discharge Orders: Discharge Order (Routine); Ordered 01/29/21 Ordered By: Narayan Whitfield Referrals: Narayan Whitfield MD [Physician] - 2 weeks Discharge Diet: Usual diet Discharge Activity: Increase activity as tolerated Patient Instructions: Female Sterilization, Depression (DC), Expression, Collection and Storage of Breast Milk (DC), Preeclampsia and Eclampsia After Delivery (GEN), Tubal Ligation (GEN), OB Discharge Report, OB Food/Drug Interaction Guide, Opioid Safety, OB Home Care, OB Vaginal Deliveries - [facility], Abnormal Bleeding Activity Restrictions/Additional Instructions: 1. Please call [facility] clinic on next working day to make your post-operative appointment in 2 weeks and visit in 6 weeks. 2. Please stay home until you come back to the clinic on first post-operative check up. 3. Please follow instructions on your medications CAREFULLY. 4. If you have abdominal incision, do not cover it unless dressing is necessary because of drainage. OK to shower, but avoid bath. Leave steri-strips until they fall off. If they are still on one week after surgery, you may remove them. 5. If you had vaginal surgery or vaginal repair, Dr. Whitfield may instruct you to take SITZ bath. 6. Yellow, blood tinged odorous vaginal discharge is usually normal after hysterectomy or vaginal surgeries. 7. No sexual intercourse, tampons, or douches until you are completely released from the post-operative care. 8. Avoid constipation by eating right and maybe using some Metamucil or Milk of Magnesia. 9. All prescription refills are given during the working hours. Please do no wait till it runs out. Call the clinic at [phone] before your medication runs out. The clinic will get in touch with your doctor to prescribe medications if necessary. 10. Please remain within 40 mile radius from our hospital because emergencies do happen now and then during the post-operative period. 11. If you have stairs at home, take one step at a time slowly and minimize the number of trips. It helps to stay in one floor for the next few days. No lifting except what you can lift by one hand until you are released from the post-operative care. 12. Driving is discouraged until you are well healed. It may be 3-4 weeks before you feel strong enough to drive. You should be able to turn and look through the rear window without pain and you should be able to push the brake pedal very hard without pain before you drive. No fast rules, but SAFETY should be your primary concern. DO NOT drive if you are on sedating medications such as narcotics. 13. Call the clinic (during working hours) to make urgent appointment or go to the Emergency room, if any of the following occurs: i. Vaginal bleeding becomes heavy, more than a period. ii. Incision becomes red and sore, or drains pus. iii. Your temperature is over 100.4 or you have chill. iv. IV site becomes red and swollen (a little ``knot?? is usually OK) v. Persistent nausea and vomiting vi. Persistent constipation or diarrhea vii. Rash or allergic reaction to medications. Discharge Attestations JOB CAPTAIN Time Spent in Discharge Care*: less than 30 min Coding Level of Care Code Acute Family Counselor for Chg Fwd Diagnoses Term delivered O80 Status post bilateral salpingectomy Z90.79
[2021-01-29 14:33] VITALS: BP 124/65; PULSE 94
[2021-01-29 14:45] VITALS: BP 124/65; PULSE 94; RESP 18; TEMP 36.8
== END 2021-01-29 14:45 | disposition home or self-care (01) | DRG 798 ==
LOC: OPOB 05:15 → OBGYN 05:15
PROVIDERS: Admitting Provider Obstetrics & Gynecology; PCP Nurse Practitioner Women's Health; Visit Provider Obstetrics & Gynecology
PROC: 10E0XZZ Delivery of Products of Conception, External Approach (ICD-10-PCS; CPT 58605; principal; 2021-01-28 13:00)
DX: O99.02 Anemia complicating childbirth (principal); Z37.0 Single live birth; D64.9 Anemia, unspecified; O69.2XX0 Labor and delivery complicated by other cord entanglement, with compression, not applicable or unspecified; Z3A.38 38 weeks gestation of pregnancy; Z30.2 Encounter for sterilization
CPT/HCPCS: 36415; 51702; 59025; 59409; 85025; 85027; 88302; 99211; J1885; J2405; J2795